=== PATIENT | male | born 1955 | race Caucasian/White ===

== ENCOUNTER 2018-07-26 11:48 | Emergency (ER) | payer OTHER ==
[2018-07-26 12:14] VITALS: BP 109/72; PULSE 87; RESP 18; TEMP 97.8; O2SAT 96
--- NOTE | 2018-07-26 12:33 | C.PDOC ---
History Of Present Illness 63 y/o male presents to the ER complaining of right sided headache which began earlier today. Patient states that he took Motrin 800 mg with much improvement. Patient denies having fever,chills,dizziness, and visual changes. Time Seen by Provider: 07/26/18 12:26 Chief Complaint (Nursing): Headache History Per: Patient History/Exam Limitations: no limitations Onset/Duration Of Symptoms: Days Current Symptoms Are (Timing): Still Present Severity: Moderate Past Medical History Reviewed: Historical Data, Nursing Documentation, Vital Signs Vital Signs: Last Vital Signs Temp 97.8 F 07/26/18 12:10 Pulse 87 07/26/18 12:10 Resp 18 07/26/18 12:10 BP 109/72 07/26/18 12:10 Pulse Ox 96 07/26/18 12:10 - Medical History PMH: Bronchitis, HTN Denies: Chronic Kidney Disease Surgical History: Tonsillectomy Family History: States: No Known Family Hx - Social History Hx Alcohol Use: Yes (wine occ) Hx Substance Use: No - Immunization History Hx Tetanus Toxoid Vaccination: No Hx Influenza Vaccination: No Hx Pneumococcal Vaccination: No Review Of Systems Except As Marked, All Systems Reviewed And Found Negative. Constitutional: Negative for: Fever, Chills Eyes: Negative for: Vision Change Neurological: Positive for: Headache. Negative for: Dizziness Physical Exam - Physical Exam Appears: Other (mild distress) Skin: Normal Color, Warm, Dry Head: Atraumatic, Normacephalic Eye(s): bilateral: Normal Inspection Ear(s): Bilateral: Normal Nose: Other (severe beefy erythema to bilateral nasal passages) Oral Mucosa: Moist Throat: Normal, No Erythema, No Exudate Neck: Supple Chest: Symmetrical Cardiovascular: Rhythm Regular Respiratory: Normal Breath Sounds, No Rales, No Rhonchi, No Wheezing Neurological/Psych: Oriented x3, Normal Speech ED Course And Treatment O2 Sat by Pulse Oximetry: 96 (RA) Pulse Ox Interpretation: Normal Medical Decision Making Medical Decision Making: prob R sinus headache beefy red inflammed nasal passages pseudafed/NSAIDS LOW susp of ACS/CVA Disposition Doctor Will See Patient In The: Office Counseled Patient/Family Regarding: Studies Performed, Diagnosis - Disposition Referrals: Farhat Romano Jr., MD [Medical Doctor] - Disposition: HOME/ ROUTINE Disposition Time: 12:33 Condition: GOOD Additional Instructions: Pseudafed 30 mg every 6 hours as needed for nasal passage inflammation Motrin/Advil 400-600 mg every 6 hours as needed for headache pain Flonase Nasal Steroid [place] 1 spray each nostril every 12 hours until Summer Decreases inflammation due to seasonal allergies Claritin 10 mg daily (take in AM) decreases nasal passage inflammation due to seasonal allergies Instructions: Sinus Headache (DC) Forms: [facility] (Citizen [place]) - Clinical Impression Clinical Impression: Headache - Scribe Statement The provider has reviewed the documentation as recorded by the Jackelin Bermudez Provider Attestation: All medical record entries made by the Jackelin were at my direction and personally dictated by me. I have reviewed the chart and agree that the record accurately reflects my personal performance of the history, physical exam, medical decision making, and the department course for this patient. I have also personally directed, reviewed, and agree with the discharge instructions and disposition.
== END 2018-07-26 12:46 | disposition home or self-care (01) ==
LOC: C.ER 11:48
DX: R51 Headache (principal); I10 Essential (primary) hypertension